=== PATIENT | female | born 1985 | race Caucasian/White ===

== ENCOUNTER 2017-03-12 10:43 | Emergency (ER) | payer OTHER ==
[~2017-03-12] VITALS: Ht 162.5 cm; Wt 72.6 kg
[~2017-03-12 10:43] MED LIST: AMOXICILLIN500 MG PO; ANUSOL-HC25 MG RC; BACTRIM DS 8001 TA1 PO; BACTROBAN CREAM15 GM PO; BENTYL10 MG PO; CYCLOBENZAPRINE10 MG PO; DARVOCET N 1001 TAB PO; FLONASE 0.05% 121 EA NAS; KEFLEX500 MG PO; MIRENA52 MG IU; MOTRIN800 MG PO; NAPROSYN500 MG PO; NO DAILY MEDS; NORCO 325 MG-51 TAB PO; NORCO 5-325 TA1 EACH PO; PRILOSEC20 MG PO; PYRIDIUM200 M1 PO; TESSALON PERLE100 M1 PO; TESSALON PERLE100 MG PO; TOPCARE OMEPRAZ20 MG PO; VIBRAMYCIN100 MG PO; VICODIN1 TAB PO; ZANTAC150 MG PO; ZOFRAN4 MG PO
[2017-03-12] MEDS ORDERED: CEPHALEXIN500 M1 PO (12:41)
== END 2017-03-12 12:48 | disposition home or self-care (01) ==
LOC: ED 10:43
DX: S80.02XA Contusion of left knee, initial encounter (principal); S80.212A Abrasion, left knee, initial encounter; F17.200 Nicotine dependence, unspecified, uncomplicated; Z90.89 Acquired absence of other organs; Z79.899 Other long term (current) drug therapy; W01.0XXA Fall on same level from slipping, tripping and stumbling without subsequent striking against object, initial encounter; Y93.01 Activity, walking, marching and hiking; Y92.828 Other wilderness area as the place of occurrence of the external cause; Y99.9 Unspecified external cause status

== ENCOUNTER 2017-06-11 11:50 | Emergency (ER) | payer OTHER ==
[~2017-06-11] VITALS: Ht 162.5 cm; Wt 72.6 kg
[~2017-06-11 11:50] MED LIST changes: +CEPHALEXIN500 M1 PO
[2017-06-11 12:41] LABS: BASO # 0.1 10*3/uL (0.0-0.1); BASO % 1.1 % (0.0-1.0); EOS # 0.1 10*3/uL (0.0-0.4); EOS % 2.5 % (1.0-4.0); HEMATOCRIT 43.1 % (37.0-47.0); HEMOGLOBIN 14.2 g/dl (12.0-16.0); LYMPH # 1.8 10*3/uL (1.3-4.4); LYMPH % 37.4 % (27.0-41.0); MEAN CELL VOLUME 82.3 fl (81.0-99.0); MEAN CORPUSCULAR HGB 27.1 pg (27.0-31.0); MEAN CORPUSCULAR HGB CONC 32.9 g/dl (33.0-37.0); MEAN PLATELET VOLUME 10.5 fl (9.6-12.3); MONO # 0.4 10*3/uL (0.1-1.0); MONO % 7.4 % (3.0-9.0); NEUT # 2.4 10*3/uL (2.3-7.9); NEUT % 51.4 % (47.0-73.0); PLATELET COUNT AUTOMATED 172 10*3/uL (130-400); RED BLOOD COUNT 5.24 10*6/uL (4.10-5.10); RED CELL DISTRI WIDTH 13.1 % (0-14.5); WHITE BLOOD COUNT 4.7 10*3/uL (4.8-10.8)
[2017-06-11 12:49] LABS: PROTHROMBIN TIME 10.6 SECONDS (9.0-12.4)
[2017-06-11 12:56] LABS: ALBUMIN 4.1 gm/dl (3.1-4.5); ALKALINE PHOSPHATASE 66 U/L (45-117); BILIRUBIN, TOTAL 0.7 mg/dl (0.2-1.0); BUN 10 mg/dl (7-24); C-REACTIVE PROTEIN 0.51 MG/DL (0-0.3); CARBON DIOXIDE 25 mmol/L (21-32); CHLORIDE 107 mmol/L (98-107); CKMB 1.4 ng/ml (0.5-3.6); CPK 113 U/L (26-192); EST GLOM FILT AFRICAN AMERICAN > 60 ml/min; GLUCOSE 77 mg/dL (65-99); MAGNESIUM 2.2 mg/dL (1.5-2.1); POTASSIUM 4.1 mmol/L (3.5-5.1); SGOT/AST 17 IU/L (3-35); SGPT/ALT 21 U/L (12-78); SODIUM 139 mmol/L (136-145)
[2017-06-11 13:00] LABS: TROPONIN I < 0.015 ng/ml (<0.045)
[2017-06-11] MEDS ORDERED: PEPCID20 MG PO (13:29)
[2017-06-11] MEDS ORDERED: OMEPRAZOLE D/R20 MG PO (13:29)
== END 2017-06-11 13:31 | disposition home or self-care (01) ==
LOC: ED 11:50
PROVIDERS: Emergency Medicine
DX: K29.00 Acute gastritis without bleeding (principal); F17.200 Nicotine dependence, unspecified, uncomplicated; Z79.899 Other long term (current) drug therapy

== ENCOUNTER → 2017-07-13 | Emergency (ER) | payer OTHER ==
[~2017-07-13] VITALS: Ht 162.5 cm; Wt 72.6 kg
[~2017-07-13] MED LIST changes: +OMEPRAZOLE D/R20 MG PO; +PEPCID20 MG PO; +ZOFRAN ODT4 MG SL
== END ==
LOC: ED 08:35
DX: R11.2 Nausea with vomiting, unspecified (principal); R19.7 Diarrhea, unspecified; R10.9 Unspecified abdominal pain; R51 Headache; Z79.899 Other long term (current) drug therapy; F17.200 Nicotine dependence, unspecified, uncomplicated

== ENCOUNTER 2018-07-18 19:47 | Emergency (ER) | payer OTHER ==
[~2018-07-18] VITALS: Ht 162.5 cm; Wt 72.6 kg
[2018-07-18 20:13] LABS: BASO # 0.1 10*3/uL (0.0-0.1); BASO % 0.7 % (0.0-1.0); EOS # 0.2 10*3/uL (0.0-0.4); EOS % 2.8 % (1.0-4.0); HEMATOCRIT 40.9 % (37.0-47.0); HEMOGLOBIN 13.3 g/dl (12.0-16.0); MEAN CELL VOLUME 82.1 fl (81.0-99.0); MEAN CORPUSCULAR HGB 26.7 pg (27.0-31.0); MEAN CORPUSCULAR HGB CONC 32.5 g/dl (33.0-37.0); MEAN PLATELET VOLUME 10.6 fl (9.6-12.3); MONO # 0.6 10*3/uL (0.1-1.0); MONO % 8.7 % (3.0-9.0); NEUT # 3.1 10*3/uL (2.3-7.9); NEUT % 44.4 % (47.0-73.0); PLATELET COUNT AUTOMATED 177 10*3/uL (130-400); RED BLOOD COUNT 4.98 10*6/uL (4.10-5.10); RED CELL DISTRI WIDTH 13.2 % (0-14.5); WHITE BLOOD COUNT 6.9 10*3/uL (4.8-10.8)
[2018-07-18 20:29] LABS: ALBUMIN 3.6 gm/dl (3.1-4.5); ALKALINE PHOSPHATASE 61 U/L (45-117); BUN 10 mg/dl (7-24); CHLORIDE 107 mmol/L (98-107); CREATININE 0.83 mg/dL (0.55-1.02); LIPASE 258 U/L (73-393); POTASSIUM 3.9 mmol/L (3.5-5.1); SGOT/AST 15 IU/L (3-35); SGPT/ALT 22 U/L (12-78); SODIUM 140 mmol/L (136-145); TOTAL PROTEIN 6.7 gm/dL (6.4-8.2)
[2018-07-18 20:33] LABS: BILIRUBIN NEGATIVE (NEGATIVE); BLOOD NEGATIVE (NEGATIVE); COLOR YELLOW (YELLOW); GLUCOSE NEGATIVE (NEGATIVE); KETONE TRACE (NEGATIVE); LEUKO ESTERASE NEGATIVE (NEGATIVE); NITRITE NEGATIVE (NEGATIVE); SPECIFIC GRAVITY <= 1.005 (1.005-1.030)
[2018-07-18 20:44] LABS: CLARITY CLOUDY (CLEAR); EPITHELIAL CELLS 15-20; RBC 0-2 rbc/hpf (0-2); WBC 0-2 wbc/hpf (0-5)
[2018-07-18] MEDS ORDERED: Zofran4 MG SL (21:55)
[2018-09-13] MEDS ORDERED: ZANTAC 150150 MG PO (10:34)
[2018-09-14] MEDS ORDERED: OMEPRAZOLE40 MG PO (10:46)
== END 2018-07-18 21:52 | disposition home or self-care (01) ==
LOC: ED 19:47
PROVIDERS: Nurse Practitioner Family
DX: K29.70 Gastritis, unspecified, without bleeding (principal); K21.9 Gastro-esophageal reflux disease without esophagitis; F17.200 Nicotine dependence, unspecified, uncomplicated; Z79.899 Other long term (current) drug therapy

== ENCOUNTER → 2018-08-26 | Outpatient (CLI) | payer OTHER ==
[~2018-08-26] MED LIST changes: +OMEPRAZOLE40 MG PO; +ZANTAC 150150 MG PO; +Zofran4 MG SL
[2018-08-26 10:11] LABS: BASO # 0.1 10*3/uL (0.0-0.1); EOS # 0.2 10*3/uL (0.0-0.4); EOS % 2.9 % (1.0-4.0); HEMATOCRIT 41.2 % (37.0-47.0); HEMOGLOBIN 13.4 g/dl (12.0-16.0); LYMPH # 1.5 10*3/uL (1.3-4.4); LYMPH % 28.6 % (27.0-41.0); MEAN CELL VOLUME 82.6 fl (81.0-99.0); MEAN CORPUSCULAR HGB 26.9 pg (27.0-31.0); MEAN CORPUSCULAR HGB CONC 32.5 g/dl (33.0-37.0); MEAN PLATELET VOLUME 10.3 fl (9.6-12.3); MONO # 0.4 10*3/uL (0.1-1.0); MONO % 6.9 % (3.0-9.0); NEUT # 3.1 10*3/uL (2.3-7.9); NEUT % 60.4 % (47.0-73.0); PLATELET COUNT AUTOMATED 191 10*3/uL (130-400); RED BLOOD COUNT 4.99 10*6/uL (4.10-5.10); RED CELL DISTRI WIDTH 13.4 % (0-14.5); WHITE BLOOD COUNT 5.2 10*3/uL (4.8-10.8)
[2018-08-26 10:31] LABS: ALBUMIN 3.9 gm/dl (3.1-4.5); ALKALINE PHOSPHATASE 52 U/L (45-117); BUN 13 mg/dl (7-24); CHLORIDE 103 mmol/L (98-107); CHOLESTEROL 168 mg/dL (<200); CREATININE 0.87 mg/dL (0.55-1.02); HDL CHOLESTEROL 46 mg/dl (40-60); LDL CHOLESTEROL 112 mg/dL (9-159); POTASSIUM 4.2 mmol/L (3.5-5.1); SGOT/AST 14 IU/L (3-35); SGPT/ALT 22 U/L (12-78); SODIUM 135 mmol/L (136-145); TOTAL PROTEIN 6.8 gm/dL (6.4-8.2); TRIGLYCERIDES 49 mg/dl (<150); VLDL CHOLESTEROL 10 mg/dL (6-40)
[2018-08-27 08:08] LABS: H PYLORI IGG AB 162289 0.13 (0.00-0.79)
[2018-08-27 14:08] LABS: t-TRANSGLUTAMINASE (tTG) IGA <2 U/mL (0-3)
[2018-08-27 15:04] LABS: H.PYLORI IGM <9.0 units (0.0-8.9); H.PYLORI IgA 163170 <9.0 units (0.0-8.9)
== END | disposition home or self-care (01) ==
LOC: CT 08-06 15:00 → LAB 08:49 → CT 09:00
PROVIDERS: Nurse Practitioner Family
DX: Z23 Encounter for immunization (principal); K21.9 Gastro-esophageal reflux disease without esophagitis; R10.84 Generalized abdominal pain; E53.8 Deficiency of other specified B group vitamins; K59.00 Constipation, unspecified; Z72.0 Tobacco use

== ENCOUNTER → 2018-09-14 | Day surgery (SDC) | payer OTHER ==
[~2018-09-14] VITALS: Ht 162.5 cm; Wt 74.4 kg
[2018-09-14 07:30] VITALS: BP 116/80
[2018-09-14 10:07] VITALS: BP 100/65
[2018-09-14 10:22] VITALS: BP 93/64
[2018-09-14 10:37] VITALS: BP 108/76
== END | disposition home or self-care (01) ==
LOC: SDC 09-10 12:30
DX: K63.89 Other specified diseases of intestine (principal); K29.50 Unspecified chronic gastritis without bleeding; K22.10 Ulcer of esophagus without bleeding; K44.9 Diaphragmatic hernia without obstruction or gangrene; K21.9 Gastro-esophageal reflux disease without esophagitis; F17.210 Nicotine dependence, cigarettes, uncomplicated; F32.9 Major depressive disorder, single episode, unspecified; Z98.890 Other specified postprocedural states

== ENCOUNTER → 2019-06-17 | Outpatient (CLI) | payer OTHER ==
[~2019-06-17] MED LIST changes: +IBU800 MG PO; +KEFLEX500 M1 PO
== END | disposition home or self-care (01) ==
LOC: US 13:45
DX: R10.2 Pelvic and perineal pain (principal)

== ENCOUNTER → 2019-08-15 | Day surgery (SDC) | payer OTHER ==
[~2019-08-15] VITALS: Ht 162.5 cm; Wt 77.1 kg
[2019-08-15] VITALS (10 sets, daily range): BP systolic 98–116; BP diastolic 60–83
[~2019-08-15] MED LIST changes: +BUSPAR5 MG PO; +Motrin,Rufen800 MG PO; +VISTARIL50 MG PO; +ZOLOFT100 MG PO
== END | disposition home or self-care (01) ==
LOC: SDC 08-08 13:15 → LAB 00:57 → SDC 07:30
DX: D27.0 Benign neoplasm of right ovary (principal); K21.9 Gastro-esophageal reflux disease without esophagitis; F41.9 Anxiety disorder, unspecified; F32.9 Major depressive disorder, single episode, unspecified; F17.210 Nicotine dependence, cigarettes, uncomplicated; Z98.890 Other specified postprocedural states; Z79.899 Other long term (current) drug therapy

== ENCOUNTER 2019-08-18 11:46 | Emergency (ER) | payer OTHER ==
[~2019-08-18] VITALS: Ht 162.5 cm; Wt 77.1 kg
[2019-08-18 12:53] LABS: BASO % 0.4 % (0.0-1.0); EOS # 0.1 10*3/uL (0.0-0.4); EOS % 1.1 % (1.0-4.0); HEMATOCRIT 38.4 % (37.0-47.0); HEMOGLOBIN 12.4 g/dl (12.0-16.0); LYMPH # 1.1 10*3/uL (1.3-4.4); LYMPH % 14.9 % (27.0-41.0); MEAN CORPUSCULAR HGB 27.1 pg (27.0-31.0); MEAN CORPUSCULAR HGB CONC 32.3 g/dl (33.0-37.0); MEAN PLATELET VOLUME 9.8 fl (9.6-12.3); MONO # 0.5 10*3/uL (0.1-1.0); MONO % 7.2 % (3.0-9.0); NEUT # 5.5 10*3/uL (2.3-7.9); NEUT % 75.8 % (47.0-73.0); PLATELET COUNT AUTOMATED 179 10*3/uL (130-400); RED BLOOD COUNT 4.57 10*6/uL (4.10-5.10); RED CELL DISTRI WIDTH 12.9 % (0-14.5); WHITE BLOOD COUNT 7.3 10*3/uL (4.8-10.8)
[2019-08-18 13:09] LABS: ALKALINE PHOSPHATASE 47 U/L (45-117); BUN 10 mg/dl (7-24); CHLORIDE 106 mmol/L (98-107); CREATININE 0.77 mg/dL (0.55-1.02); LIPASE 56 U/L (73-393); POTASSIUM 3.8 mmol/L (3.5-5.1); SGOT/AST 11 IU/L (3-35); SGPT/ALT 14 U/L (12-78); SODIUM 137 mmol/L (136-145); TOTAL PROTEIN 6.5 gm/dL (6.4-8.2)
[2019-08-18 13:16] LABS: BILIRUBIN NEGATIVE (NEGATIVE); BLOOD NEGATIVE (NEGATIVE); CLARITY CLOUDY (CLEAR); COLOR YELLOW (YELLOW); GLUCOSE NEGATIVE (NEGATIVE); KETONE NEGATIVE (NEGATIVE); LEUKO ESTERASE NEGATIVE (NEGATIVE); NITRITE NEGATIVE (NEGATIVE)
[2019-08-18 13:28] LABS: BACTERIA 2+; EPITHELIAL CELLS TNTC
== END 2019-08-18 15:50 | disposition home or self-care (01) ==
LOC: ED 11:46
PROVIDERS: Emergency Medicine
DX: G89.18 Other acute postprocedural pain (principal); R51 Headache; R11.0 Nausea; R68.83 Chills (without fever); R06.00 Dyspnea, unspecified; F17.200 Nicotine dependence, unspecified, uncomplicated; Z90.49 Acquired absence of other specified parts of digestive tract; Z79.899 Other long term (current) drug therapy; Z90.721 Acquired absence of ovaries, unilateral

== ENCOUNTER 2019-08-25 23:31 | Emergency (ER) | payer OTHER ==
[~2019-08-25] VITALS: Ht 162.5 cm; Wt 77.1 kg
[2019-08-25] MEDS ORDERED: KEFLEX500 M1 PO (23:52)
== END 2019-08-26 00:34 | disposition home or self-care (01) ==
LOC: ED 23:31
DX: T81.41XA Infection following a procedure, superficial incisional surgical site, initial encounter (principal); F17.200 Nicotine dependence, unspecified, uncomplicated; Z90.89 Acquired absence of other organs; Z79.899 Other long term (current) drug therapy; Y92.89 Other specified places as the place of occurrence of the external cause

== ENCOUNTER 2022-06-25 00:07 | Emergency (ER) | payer OTHER ==
[~2022-06-25] VITALS: Ht 162.5 cm; Wt 61.2 kg
[2022-06-25] MEDS ORDERED: CYCLOBENZAPRINE10 MG PO (04:37)
[2022-06-25] MEDS ORDERED: NAPROSYN500 MG PO (04:37)
== END 2022-06-25 04:41 | disposition home or self-care (01) ==
LOC: ED 00:07
DX: M25.551 Pain in right hip (principal); M25.552 Pain in left hip; M79.604 Pain in right leg; M54.50 Low back pain, unspecified; M62.830 Muscle spasm of back; Z79.899 Other long term (current) drug therapy; W17.89XA Other fall from one level to another, initial encounter; Y93.89 Activity, other specified; Y92.89 Other specified places as the place of occurrence of the external cause; Y99.9 Unspecified external cause status